=== PATIENT | male | born 1950 | race Two or more races ===

== ENCOUNTER 2023-12-27 14:27 | Emergency (ER) | payer OTHER, SELFPAY ==
--- NOTE | ~2023-12-27 | XR_ITS ---
EXAMINATION: XR SHOULDER, RIGHT CLINICAL INFORMATION: Right shoulder pain. COMPARISON: None available. TECHNIQUE: Three views of the right shoulder. FINDINGS: Mild glenohumeral osteoarthritis with nonuniform joint space narrowing and marginal osteophytes. Status post distal clavicular resection. No fracture or malalignment. Bones are osteopenic. Soft tissues are unremarkable. XR/XR shoulder RT min 2V IMPRESSION: Mild glenohumeral osteoarthritis. No acute osseous findings.
[2023-12-27 15:28] VITALS: BP 132/87; PULSE 62; RESP 18; TEMP 36.5; O2SAT 95; BMI 29.0
--- NOTE | 2023-12-27 16:19 | ED.EXTPRO ---
HPI - Extremity Problem General Chief complaint: Extremity Injury, Upper Stated complaint: R [facility] pain [facility] Source: patient Mode of arrival: ambulatory Limitations: no limitations History of Present Illness HPI Narrative: This is a 73-year-old male presenting with right shoulder pain for the past week, patient reports pain is intermittent in nature and at times hurts more when he is sitting down not moving his shoulder. Denies any blunt trauma. Denies chest pain, shortness of breath, numbness, tingling, headache, vision changes, dizziness and weakness. Reports old injury to this right shoulder from years ago. Related Data Previous Rx's Medication Instructions Recorded lidocaine 5 % topical patch 1 patch topical DAILY PRN pain #15 12/27/23 ea Allergies Allergy/AdvReac Type Severity Reaction Status Date / Time nitroglycerin AdvReac Migraine Verified 12/27/23 15:27 [From Nitro-Bid] Review of Systems Review of Systems: Yes all other systems are reviewed and are negative PMFSH Past Medical History Attestation statement: The following information was validated with the patient. Source: old records reviewed and nursing notes reviewed Physical Exam Vital Signs: Vital Signs: Last Vital Signs Temp 97.7 F 12/27/23 15:28 Pulse 62 12/27/23 15:28 Resp 18 12/27/23 15:28 BP 132/87 12/27/23 15:28 Pulse Ox 95 12/27/23 15:28 O2 Del Method Room Air 12/27/23 15:28 BMI result Body Mass Index 29.0 vss Appearance: Alert.? Oriented X3.? No acute distress.? Head: Normocephalic, atraumatic, no step-offs or deformities Eyes: Pupils equal, round and reactive to light.? ENT: Pharynx normal.? Neck: Normal inspection.? Neck supple.? CVS: Normal heart rate and rhythm.? Pulses normal.? Respiratory: No respiratory distress.? Breath sounds normal.? Skin: Skin warm and dry.? Normal skin color.? Normal skin turgor.? Extremities: No lower extremity edema.? No calf ttp. 5/5 strength to bilateral upper and lower extremities 2+ radial pulses equal bilateral. No wrist drop. There is discomfort with palpation of the right posterior scapular region and distal clavicle. No overlying skin changes. No step-offs or deformities. Normal sensation distally. Full range of motion to bilateral shoulders. Back: No midline tenderness, no C-spine tenderness, full range of motion, no CVA tenderness bilaterally Neuro: Oriented X 3.? No motor deficit.? No sensory deficit. CN 2-12 intact Course Course Course Narrative: This is an RME: Additional HPI, ROS, PE not included below will be deferred to primary provider. This is a 73-year-old male presenting to the emergency department with complaints of right shoulder pain for the last week. States that he had an old injury from [place]. Worsening pain over the last week. No chest pain or shortness of breath. Plan: X-ray right shoulder Medical Decision Making Medical Decision Making MDM Narrative: 73-year-old male presents with complaints of right shoulder pain atraumatic went on for a week intermittent nature. No numbness or tingling. No chest pain or shortness of breath Physical exam significant for No lower extremity edema.? No calf ttp. 5/5 strength to bilateral upper and lower extremities 2+ radial pulses equal bilateral. No wrist drop. There is discomfort with palpation of the right posterior scapular region and distal clavicle. No overlying skin changes. No step-offs or deformities. Normal sensation distally. Full range of motion to bilateral shoulders. Concerns for osteoarthritis versus bursitis. Unlikely atypical presentation of ACS. Inflammatory arthritis can not be excluded. Overuse injury and rotator cuff injury or other differentials although less likely. Plan at this time imaging. Will have patient follow-up with PCP and orthopedic is stiff needed. X-ray was ordered by previous provider. X-ray showing glenohumeral osteoarthritis. No fractures or dislocations. Patient moving shoulder without difficulty would like to leave. Will be discharged from triage peer Educated patient on diagnosis and treatment plan, answered all question, patient verbalizes understanding. At this time patient will be discharged home, advised to return with new or worsening symptoms. Educated on worrisome signs and symptoms and when to return. At this time I feel comfortable discharge home. Differential Diagnosis Differential Diagnoses: The differential diagnosis associated with the presentation includes Concerns for osteoarthritis versus bursitis. Unlikely atypical presentation of ACS. Inflammatory arthritis can not be excluded. Overuse injury and rotator cuff injury or other differentials although less likely. Admission/Observation Consideration of admission/observation: Escalation of care including admission/observation considered unlikely Independent Interpretation I performed an independent interpretation of an: Plain X-Ray ( XR/XR shoulder RT min 2V IMPRESSION: Mild glenohumeral osteoarthritis. No acute osseous findings. ) Radiology Impression Discussion of test interpretation with radiology: I have reviewed the radiologist's reading. Prescription Management I considered prescription management with: Other (lidocaine patch ) Critical Care Time Critical Care Time Critical Care Time: No Discharge Plan Discharge Clinical Impression: Pain in right shoulder Patient Disposition: Home, Self-Care Instructions: Shoulder Pain (ED) Additional Instructions: Take your medications as prescribed. If you were prescribed antibiotics today, it is important that you take your medication to their entirety, do not skip any doses, do not finish them early. Follow-up with your primary care provider this week. Return to the emergency department with new or worsening symptoms. Such as fevers, chills, chest pain, shortness of breath, nausea, vomiting, dizziness, headache, vision changes, lethargy In case of emergency call 911 XR/XR shoulder RT min 2V IMPRESSION: Mild glenohumeral osteoarthritis. No acute osseous findings. Prescriptions: New lidocaine 5 % adhesive patch,medicated 1 patch topical DAILY PRN (Reason: pain) Qty: 15 0RF Rx Instructions: leave on most painful area for up to 12 hrs Referrals: Physician,Unknown J [Primary Care Provider] - 2 days [facility] [Provider Group] - 1 week Stand Alone Forms: Work/School Release
== END 2023-12-27 18:15 | disposition home or self-care (01) ==
LOC: HO.ED 18:06
PROVIDERS: Emergency Provider Internal Medicine
DX: M25.511 Pain in right shoulder (principal)
CPT/HCPCS: 73030; 99282; 99283